=== PATIENT | female | born 1965 | race Caucasian/White ===

== ENCOUNTER → 2020-08-21 | Outpatient (CLI) | payer BC | LOC: CT 13:24 | DX: J32.9 Chronic sinusitis, unspecified (principal); R51.9 Headache, unspecified | CPT/HCPCS: 70486 ==

== ENCOUNTER → 2022-03-08 | Outpatient (CLI) | payer BC | LOC: EXRD 07:55 | DX: R10.9 Unspecified abdominal pain (principal) | CPT/HCPCS: 76700 ==